=== PATIENT | female | born 1990 | race Caucasian/White ===

== ENCOUNTER 2020-12-30 04:42 | Inpatient (IN) ==
[2020-12-30] MEDS ORDERED: OXYTOCIN 30 UNITS/500 ML BAG IV PRN ×2 (05:42→08:44)
[2020-12-30] MEDS: LACTATED RINGER'S 1,000 ML IV PRN ×3 (06:00→16:31)
[2020-12-30 06:21] LABS: Hematocrit (blood only) 36.9 % (37-47); Hemoglobin 12.6 g/dL (12.0-16.0); Mean Corpuscular Hemoglobin 31.7 pg (25-34); Mean Corpuscular Hgb Conc 34.1 g/dL (32-36); Mean Corpuscular Volume 92.7 fL (80-100); Mean Platelet Volume 11.8 fL (7.4-10.4); Platelet Count 121 K/uL (130-400); RDW Coefficient of Variation 12.7 % (11.5-14.5); RDW Standard Deviation 42.8 fL (36.4-46.3); Red Blood Count 3.98 M/uL (4.2-5.4); White Blood Count 9.58 K/uL (4.8-10.8)
--- NOTE | 2020-12-30 06:31 | History & Physical Report ---
Date of Service December 30, 2020 Assessment & Plan (1) premature rupture of membranes: Plan: 30 y/o G1 at 36 3/7 presenting w/ PPROM VSS Fetus cat 1 Labor - will recheck in a few hours and see if progression. At GA will proceed with induction if not laboring GBS neg Epidural PRN COVID pending History of Present Illness Chief Complaint: LOF Primary Care Provider: CHRISTA Franco 30 y/o G1 at 36 3/7 wga presents after LOF began around 3AM this morning. +FM, occ ctx, denies VB PNI: None Past [employer] Hx: G1 Menarche 13, cycles q28-30d Denies hx STIs Denies hx abnl pap Allergies Allergy/AdvReac Type Severity Reaction Status Date / Time No Known Drug Allergies Allergy Verified 12/27/20 10:31 Home Medications Medication Instructions Recorded Confirmed Type prenat.vits,gavin,sbd-upnk-oooow 1 tab PO DAILY 06/08/20 12/30/20 History Patient History Medical History Dermoid cyst of right ovary Varicella vaccination Surgical History H/O ovarian cystectomy Laparoscopic Right-02/05/2018, dermoid Hx of wisdom tooth extraction Family History Mother High cholesterol Father High cholesterol Denies family history of Ovarian cancer Breast cancer Colorectal cancer Social History Smoking Status: Never smoker Hx Alcohol Use: Yes Alcohol type: beer Hx Substance Use: No Preferred Language: Turkmen Communication Ability: Effective Visual Impairment: No Limitations 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: No Beliefs That Will Affect Care: None marital status: marital status details: Matthew Granado (30) [phone] Current Living Situation: Spouse Current Living Situation Comment: lives with spouse, no pets current occupational status: employed current occupation: [id number] Other Information That Helps Us Care for You: No Feels Safe at Home: Yes Safety Concerns: Feels Safe At This Time Assistive Devices: None Physical Exam Constitutional: WD/WN, vitals as above Respiratory: normal respiratory effort; no respiratory distress and no labored breathing Genitourinary: OB Exam Abdomen: + vertex and + estimated weight (6) Manual OB Exam: + cervical dilation 1 cm, + cervical effacement 50%, + station - 2 and + amniotic fluid (grossly ruptured) clear OB Exam Monitor Tracing: + external FHT monitor used, + external uterine monitor used (q9) and + category I (135/mod/+accel/decel during vagal episode after starting IV) SVE performed by nursing Results & Data ([facility]) Vital Signs (Past 12 Hours) Vital Signs Temp Pulse Resp BP 12/30/20 06:02 84 122/69 12/30/20 05:59 59 L 100/55 L 12/30/20 05:58 44 L 62/32 L 12/30/20 05:10 98.4 F 78 16 114/71 12/30/20 05:07 78 114/71 Laboratory Results OB Labs: Blood Type O Positive 02/05/18 Antibody Screen NEGATIVE 02/05/18 Hemoglobin 12.1 g/dL (11.7-15.5) 10/31/20 Hematocrit 36.0 % (35.0-45.0) 10/31/20 Mean Corpuscular Volume 90.3 fL (80-100) 01/19/18 Platelet Count 220 K/uL (130.0-400.0) 06/13/20 Glucose 1 Hour 50 gm Load 99 mg/dL (<135) 10/31/20 OB Optional Labs: Chlamydia trachomatis RNA NOT DETECTED (NOT DETECTED) 06/13/20 Neisseria gonorrhoeae RNA NOT DETECTED (NOT DETECTED) 06/13/20 Labs Reviewed: declines cfDNA declines cf/sma Initial OB Labs 06/13/2020 Blood Type & RH O+ Antibody Screen No antibodies HCT/HGB 41.4/14.2 Platelets 220 Pap Test Chlamydia NEG Gonorrhea NEG Rubella IMMUNE RPR NON reactive Urine Culture/Screen NEG HBsAg Non Reactive HIV Non Reactive MCV 90.8 Ultrasound declines cf/sma/genetics [facility] Diagnostic Findings Anterior plac Coding Level of Care Code None Diagnoses premature rupture of membranes O42.919
--- NOTE | 2020-12-30 06:53 | Anesthesiology Consultation ---
Date of Service December 30, 2020 Assessment & Plan Chart Review Chart Review: Patient NOT seen in Pre Admission Testing and Acceptable Risk for Labor Epidural Consults Requested none ASA ASA2 Proposed Anesthesia Anesthesia Type: Labor Epidural and CSE History Height/Weight Height: 5 ft 4 in Weight: 69.946 kg Allergies Allergy/AdvReac Type Severity Reaction Status Date / Time No Known Drug Allergies Allergy Verified 12/27/20 10:31 Medications Home Medications Medication Instructions Recorded Confirmed Last Taken prenat.vits,gavin,iqv-boss-kkmjz 1 tab PO DAILY 06/08/20 12/30/20 12/29/20 Active Medications Generic Name Dose Route Start Last Admin Trade Name Freq PRN Reason Stop Dose Admin Lactated Ringer's 1,000 mls @ 125 mls/hr 12/30/20 05:42 12/30/20 06:15 Lr IV 01/01/21 05:41 0 mls/hr .Q8H PRN Infusion L&D Protocol Protocol Past Medical History Medical History Dermoid cyst of right ovary Varicella vaccination Exercise / Class Metabolic Activity II 4-5 Yardwork/Stairs/Walk up hill Past Family History Family History Mother High cholesterol Father High cholesterol Denies family history of Ovarian cancer Breast cancer Colorectal cancer Past Surgical History Surgical History H/O ovarian cystectomy Laparoscopic Right-02/05/2018, dermoid Hx of wisdom tooth extraction Past Anesthesia History No Hx of Anesthesia Complications and No Family Hx of Anesthesia Complications History of PONV No Hx of PONV and No Hx of Motion Sickness Social History Smoking Status: Never smoker Hx Alcohol Use: Yes Alcohol type: beer alcohol intake frequency: other Hx Substance Use: No substance use type: does not use Physical Exam Vital Signs Last Vital Signs Temp 36.9 C 12/30/20 05:10 Pulse 84 12/30/20 06:02 Resp 16 12/30/20 05:10 BP 122/69 12/30/20 06:02 Testing Laboratory Results 12/30/20 06:08
--- NOTE | 2020-12-30 08:49 | Labor Progress Brief Note ---
Date of Service December 30, 2020 Subjective Notes occasional cramping Assessment & Plan (1) premature rupture of membranes: Plan: 30 y/o G1 at 36 3/7 presenting w/ PPROM VSS Fetus cat 1 Labor - SVE unchanged, will start pitocin. Do not necessarily anticipate delivery at >24 hours so will defer betamethasone course per acog GBS neg Epidural PRN Admission and Anticipated Discharge Date Admission Date: December 30, 2020 Physical Exam Genitourinary: Manual OB Exam: + cervical dilation 1 cm, + cervical effacement 70%, + station -2 and + amniotic fluid (grossly ruptured, +nitrazine, pooling, ferning) clear OB Exam Monitor Tracing: + external FHT monitor used, + external uterine monitor used (q9) and + category I (135/mod/+accel/-decel) Results & Data ([facility]) Vital Signs (Past 12 Hours) Vital Signs Temp Pulse Resp BP 12/30/20 08:30 20 12/30/20 07:15 98.1 F 20 12/30/20 07:02 77 112/67 12/30/20 06:02 84 122/69 12/30/20 05:59 59 L 100/55 L 12/30/20 05:58 44 L 62/32 L 12/30/20 05:10 98.4 F 78 16 114/71 12/30/20 05:07 78 114/71 Coding Level of Care Code None Diagnoses premature rupture of membranes O42.919
--- NOTE | 2020-12-30 12:15 | Labor Progress Brief Note ---
Date of Service December 30, 2020 Subjective Feeling more ctx Assessment & Plan (1) premature rupture of membranes: Plan: 30 y/o G1 at 36 3/7 admitted w/ PPROM VSS Fetus cat 1 Labor - continue pitocin, peds ok with deferring betamethasone GBS neg Epidural PRN Admission and Anticipated Discharge Date Admission Date: December 30, 2020 Physical Exam Genitourinary: Manual OB Exam: + cervical dilation (1.5), + cervical effacement 70% and + station -2 OB Exam Monitor Tracing: + external FHT monitor used, + external uterine monitor used (q3-7) and + category I (135/mod/+accel/-decel) Results & Data ([facility]) Vital Signs (Past 12 Hours) Vital Signs Temp Pulse Resp BP 12/30/20 11:30 20 12/30/20 11:10 78 123/70 12/30/20 11:00 98.8 F 18 12/30/20 10:30 18 12/30/20 10:00 20 12/30/20 09:46 82 118/75 12/30/20 09:30 12/30/20 09:08 88 127/80 12/30/20 09:00 98.1 F 20 12/30/20 08:30 20 12/30/20 07:15 98.1 F 12/30/20 07:02 77 112/67 12/30/20 06:02 84 122/69 12/30/20 05:59 59 L 100/55 L 12/30/20 05:58 44 L 62/32 L 12/30/20 05:10 98.4 F 78 16 114/71 12/30/20 05:07 78 114/71 Coding Level of Care Code None Diagnoses premature rupture of membranes O42.919
--- NOTE | 2020-12-30 14:35 | Labor Progress Brief Note ---
Date of Service December 30, 2020 Subjective Getting much more uncomfortable Assessment & Plan (1) premature rupture of membranes: Plan: 30 y/o G1 at 36 3/7 admitted w/ PPROM VSS Fetus cat 1 Labor - continue pitocin, peds ok with deferring betamethasone GBS neg Epidural PRN. Discussed options for pain management other than epidural, she will consider Admission and Anticipated Discharge Date Admission Date: December 30, 2020 Physical Exam Genitourinary: Manual OB Exam: + cervical dilation 2 cm, + cervical effacement 70% and + station -2 OB Exam Monitor Tracing: + external FHT monitor used, + external uterine monitor used (q3-4) and + category I (135/mod/+accel/-decel) Results & Data ([facility]) Vital Signs (Past 12 Hours) Vital Signs Temp Pulse Resp BP 12/30/20 14:12 75 130/81 12/30/20 13:30 18 12/30/20 13:16 69 125/83 12/30/20 13:15 85 138/92 12/30/20 13:00 98.6 F 18 12/30/20 12:30 12/30/20 11:30 12/30/20 11:10 78 123/70 12/30/20 11:00 98.8 F 12/30/20 10:30 12/30/20 10:00 12/30/20 09:46 82 118/75 12/30/20 09:30 12/30/20 09:08 88 127/80 12/30/20 09:00 98.1 F 12/30/20 08:30 12/30/20 07:15 98.1 F 12/30/20 07:02 77 112/67 12/30/20 06:02 84 122/69 12/30/20 05:59 59 L 100/55 L 12/30/20 05:58 44 L 62/32 L 12/30/20 05:10 98.4 F 78 16 114/71 12/30/20 05:07 78 114/71 Coding Level of Care Code None Diagnoses premature rupture of membranes O42.919
[2020-12-30] MEDS ORDERED: ePHEDrine sulfate 50 MG/ML AMP ONE (15:03)
[2020-12-30] MEDS ORDERED: BUPIVACAINE 0.25% 30 ML VIAL ONE (15:03)
[2020-12-30] MEDS ORDERED: fentaNYL citrate 100 MCG/2 ML VIAL ONE (15:03)
[2020-12-30] MEDS ORDERED: SODIUM CHLORIDE 0.9% INJ 10 ML VIAL ONE (15:03)
[2020-12-30] MEDS ORDERED: fentaNYL 2MCG/ML ROPIVACAINE 1.25MG/ML 100 ML BAG EPI ONE (15:04)
[2020-12-30] MEDS ORDERED: ONDANSETRON INJ 2 MG/ML 2 ML VIAL IV PRN (15:44)
[2020-12-30] MEDS ORDERED: NALBUPHINE HCL INJ 10 MG/ML AMP IV PRN (15:44)
[2020-12-30] MEDS ORDERED: PROMETHAZINE HCL 25 MG in SODIUM CHLORIDE 0.9% 50 ML IV PRN (15:44)
[2020-12-30] MEDS ORDERED: fentaNYL 2MCG/ML ROPIVACAINE 1.25MG/ML 100 ML BAG EPI PRN (15:44)
[2020-12-30] MEDS ORDERED: NALOXONE HCL 1 MG in SODIUM CHLORIDE 0.9% 1000ML 1,000 ML IV PRN (15:44)
[2020-12-30] MEDS ORDERED: NALOXONE HCL 0.4 MG/1 ML VIAL/CARP IV PRN (15:44)
[2020-12-30] MEDS ORDERED: ePHEDrine sulfate 50 MG/ML AMP IV PRN (15:44)
[2020-12-30] MEDS ORDERED: diphenhydrAMINE 50 MG/ML VIAL IV PRN (15:44)
--- NOTE | 2020-12-30 17:34 | Labor Progress Brief Note ---
Date of Service December 30, 2020 Subjective Got comfortable w/ epidural for a while however got uncomfortable again recently Assessment & Plan (1) premature rupture of membranes: Plan: 30 y/o G1 at 36 3/7 admitted w/ PPROM VSS Fetus cat 1 Labor - progressed very well after epidural, anterior lip noted. Will reposition, plan to recheck in an hour or so GBS neg Epidural in place Admission and Anticipated Discharge Date Admission Date: December 30, 2020 Physical Exam Genitourinary: Manual OB Exam: + cervical dilation 9 cm, + cervical effacement 90% and + station + 2 OB Exam Monitor Tracing: + external FHT monitor used, + external uterine monitor used (q3) and + category I (135/mod/+accel/-decel) Results & Data ([facility]) Vital Signs (Past 12 Hours) Vital Signs Temp Pulse Resp BP Pulse Ox 12/30/20 17:30 117/87 12/30/20 17:27 86 98 12/30/20 17:22 74 97 12/30/20 17:17 73 96 12/30/20 17:14 80 115/55 L 12/30/20 17:12 83 96 12/30/20 17:07 86 97 12/30/20 17:02 88 96 12/30/20 17:00 88 139/73 12/30/20 16:57 90 97 12/30/20 16:54 85 93 12/30/20 16:52 96 H 97 12/30/20 16:48 87 94 12/30/20 16:47 76 96 12/30/20 16:46 76 116/73 12/30/20 16:42 79 96 12/30/20 16:37 73 96 12/30/20 16:36 79 93 12/30/20 16:32 76 97 12/30/20 16:29 67 16 101/64 12/30/20 16:27 76 97 12/30/20 16:22 73 96 12/30/20 16:17 73 96 12/30/20 16:14 75 116/73 12/30/20 16:12 80 114/71 97 12/30/20 16:10 70 93/54 L 12/30/20 16:08 76 100/58 L 12/30/20 16:07 76 96 12/30/20 16:06 72 95/54 L 12/30/20 16:04 73 100/56 L 12/30/20 16:02 75 98/55 L 96 12/30/20 16:00 82 18 92/54 L 12/30/20 15:58 72 98/54 L 12/30/20 15:57 72 97 12/30/20 15:56 81 103/58 L 12/30/20 15:54 80 104/55 L 12/30/20 15:52 82 110/55 L 97 12/30/20 15:50 96 H 102/58 L 12/30/20 15:48 84 101/53 L 12/30/20 15:47 84 97 12/30/20 15:46 90 103/55 L 12/30/20 15:44 79 115/55 L 12/30/20 15:42 82 113/55 L 97 12/30/20 15:39 18 12/30/20 15:37 103 H 96 12/30/20 15:32 111 H 96 12/30/20 15:27 116 H 95 12/30/20 15:24 99 H 92 12/30/20 15:23 102 H 138/67 12/30/20 15:22 98 H 96 12/30/20 15:17 102 H 97 12/30/20 15:00 98.2 F 12/30/20 14:30 22 12/30/20 14:12 75 130/81 12/30/20 13:30 18 12/30/20 13:16 69 125/83 12/30/20 13:15 85 138/92 12/30/20 13:00 98.6 F 12/30/20 12:30 20 12/30/20 11:30 20 12/30/20 11:10 78 123/70 12/30/20 11:00 98.8 F 18 12/30/20 10:30 18 12/30/20 10:00 20 12/30/20 09:46 82 118/75 12/30/20 09:30 20 12/30/20 09:08 88 127/80 12/30/20 09:00 98.1 F 12/30/20 08:30 20 12/30/20 07:15 98.1 F 12/30/20 07:02 77 112/67 12/30/20 06:02 84 122/69 12/30/20 05:59 59 L 100/55 L 12/30/20 05:58 44 L 62/32 L Coding Level of Care Code None Diagnoses premature rupture of membranes O42.919
--- NOTE | 2020-12-30 22:35 | Delivery Summary ---
Vaginal Delivery Summary Date of Service December 30, 2020 Vaginal Delivery Summary and 1st Degree LAC PREOPERATIVE DIAGNOSIS: 1. Single intrauterine at 36 3/7 wga 2. premature rupture of membranes POSTOPERATIVE DIAGNOSIS: 1. Single intrauterine at 36 3/7 wga 2. premature rupture of membranes 3. Delivered PROCEDURE: 1. Normal spontaneous vaginal delivery. SURGEON: Argelia Kendall MD ANESTHESIA: Epidural. ESTIMATED BLOOD LOSS: 300 mL FLUIDS: Continuous LR. URINE OUTPUT: None. COMPLICATIONS: None. CONDITION: Stable. INDICATIONS: 30 y/o G1 at 36 3/7 wga presented early this morning with complaints of leaking of fluid. She was found to have spontaneous rupture of membranes and was admitted. GBS was known neg. She was expectantly managed however did not progress and so was started on pitocin. She received an epidural for pain control and was then found to be complete approximately 3 hours later. FINDINGS: A viable female , weight pending with Apgars of 9 and 9 at 1 and 5 minutes respectively. SPECIMEN: Cord blood OPERATIVE REPORT: The patient progressed to 10 cm, 100% effaced and +2 station, pushed over intact perineum with anesthesia to deliver a viable female infant, weight and Apgars as above. Head of delivered in AGNIESZKA position. No nuchal cord was present. Body and shoulders were delivered without difficulty. was delivered to maternal abdomen and nursing staff. Delayed cord clamping was performed for 60 seconds. Cord was clamped and cut. Cord blood was obtained. Placenta delivered spontaneously intact with 3-vessel cord. IV oxytocin and fundal massage were given for excellent hemostasis. Vagina, cervix, perineum, and placenta were inspected. 1st degree laceration was noted and repaired in the usual fashion using 3-0 Vicryl. Sponge and needle counts correct x2. No sponges were left behind. Mother and stable in immediate period. [facility] Vaginal Delivery Charge Vaginal Delivery Codes: 12423 global code for the antepartum, delivery, and post- Delivery Type Details: and 1st Degree LAC
[2020-12-31] MEDS ORDERED: HYDROCORTISONE ACETATE 25 MG SUPP PR PRN (01:06)
[2020-12-31] MEDS ORDERED: ACETAMINOPHEN 325 MG TAB PO PRN (01:06)
[2020-12-31] MEDS ORDERED: DIPHTHERIA/TETANUS/PERTUSSIS 0.5 ML SYR/VIAL IM ONE (01:06)
[2020-12-31] MEDS ORDERED: bisacodyL 10 MG SUPP PR PRN (01:06)
[2020-12-31] MEDS ORDERED: BENZOCAINE 20% AER SPR 82.5 GM CAN EXT PRN (01:06)
[2020-12-31] MEDS ORDERED: OXYTOCIN 30 UNITS/500 ML BAG IV PRN (01:06)
[2020-12-31] MEDS ORDERED: SUPERCREAM 0.870% 15 GM JAR EXT PRN (01:06)
[2020-12-31] MEDS ORDERED: BENZOCAINE 20% AER SPR 82.5 GM CAN EXT ONE (01:10)
[2020-12-31] MEDS: IBUPROFEN 600 MG TAB PO PRN ×4 (04:53→19:21)
--- NOTE | 2020-12-31 07:26 | Obstetrical Progress Note ---
Date of Service December 31, 2020 Assessment & Plan (1) state: 30 yo PP1 from , doing well -Meeting all pp milestones -o+/rubella immune/ -f/u 6 weeks for appt, continue routine pp care Subjective Ambulation: ambulating normally Voiding: no voiding problems Passing Gas:: Yes Diet Tolerance:: regular diet Lochia:: Moderate Feeding Type:: breast feeding Pain well managed with medication Review of Systems Denies fevers, chills, n/v, ENGEL, CP, SOB Physical Exam Constitutional WD/WN, vitals as above no acute distress Respiratory normal respiratory effort, lungs clear to auscultation Cardiovascular RRR, no murmur, no edema Gastrointestinal (Abdomen) Percussion/Palpation: abdomen soft; abdomen nontender fundus firm at umbilicus and NT Musculoskeletal BLE symmetric, nonerythematous, nontender Results & Data ([facility]) Vital Signs (Past 12 Hours) Vital Signs Temp Pulse Pulse Resp BP BP Pulse Ox 12/31/20 04:48 98.6 F 82 18 112/76 12/31/20 00:20 99.0 F 79 18 115/71 12/31/20 00:11 87 107/63 12/30/20 23:57 78 109/59 L 12/30/20 23:42 85 106/61 12/30/20 23:27 86 106/56 L 12/30/20 22:57 80 115/65 12/30/20 22:42 80 109/63 12/30/20 22:12 88 16 123/58 L 12/30/20 22:07 91 H 96 12/30/20 22:02 100 H 95 12/30/20 21:59 104 H 128/57 L 94 12/30/20 21:57 103 H 95 12/30/20 21:54 123 H 94 12/30/20 21:52 129 H 96 12/30/20 21:47 103 H 96 12/30/20 21:44 122 H 162/67 H 12/30/20 21:42 105 H 96 12/30/20 21:37 94 H 96 12/30/20 21:32 105 H 96 12/30/20 21:30 95 H 141/63 H 93 12/30/20 21:27 105 H 97 09/05/21 21:22 88 96 12/30/20 21:21 90 94 12/30/20 21:17 100 H 96 12/30/20 21:14 92 H 109/67 12/30/20 21:12 90 97 12/30/20 21:07 104 H 92 12/30/20 21:05 98.4 F 16 12/30/20 21:02 90 97 12/30/20 20:57 110 H 96 12/30/20 20:53 127 H 93 12/30/20 20:52 119 H 97 12/30/20 20:47 106 H 96 12/30/20 20:45 104 H 119/67 12/30/20 20:42 103 H 96 12/30/20 20:38 119 H 93 12/30/20 20:37 89 96 12/30/20 20:32 126 H 95 12/30/20 20:29 96 H 110/61 12/30/20 20:27 94 H 96 12/30/20 20:22 91 H 96 12/30/20 20:20 116 H 93 12/30/20 20:17 144 H 98 12/30/20 20:15 116 H 119/68 12/30/20 20:12 112 H 98 12/30/20 20:09 87 93 12/30/20 20:07 97 H 97 12/30/20 20:02 82 97 12/30/20 19:59 75 110/64 12/30/20 19:57 70 96 12/30/20 19:52 72 96 12/30/20 19:47 74 97 12/30/20 19:45 75 111/67 12/30/20 19:42 83 99 12/30/20 19:37 76 99 12/30/20 19:32 81 98 12/30/20 19:29 75 109/66 12/30/20 19:27 76 97
--- NOTE | 2020-12-31 08:07 | Anesthesia Procedure Note ---
Date of Service December 31, 2020 Anesthesia Post Epidural Note Vital Signs Vital Signs: Temp Pulse Resp BP Pulse Ox 37.0 C 82 18 112/76 96 12/31/20 04:48 12/31/20 04:48 12/31/20 04:48 12/31/20 04:48 12/30/20 22:07 Notes Mental Status: alert / awake / arousable Nausea / Vomiting: adequately controlled Pain: adequately controlled Airway Patency, RR, SpO2: stable & adequate BP & HR: stable & adequate Hydration State: stable & adequate Neuraxial Anesthesia: was administered and sensory block is resolving Anesthetic Complications: no major complications apparent Epidural: Removed without complications and With tip intact
[2020-12-31] MEDS: DOCUSATE SODIUM 100 MG CAP PO SCH ×2 (08:22→19:20)
[2020-12-31] MEDS: PRENATAL VITAMIN 1 TAB PO SCH (08:22)
[2020-12-31] MEDS ORDERED: bisacodyL 5 MG TABEC PO SCH (20:00)
--- NOTE | 2021-01-01 06:12 | Obstetrical Progress Note ---
Date of Service <Misael Fernandes MD - Last Filed: 01/01/21 07:13> January 01, 2021 Assessment & Plan <Misael Fernandes MD - Last Filed: 01/01/21 07:13> (1) Vaginal delivery: 30 yo now PPD2 from at 36wk4d -Continue routine care, anticipated d/c today, discussed d/c with patient -Vitals reviewed- HDS, afebrile -Blood type O+, GBS-, Rubella immune -Encourage ambulation, regular diet -Pain control with Motrin, Tylenol PRN -Encourage -Hgb 12.6 on admission, asymptomatic -F/u in 6 weeks with OB <Sandrine Lynn MD, FACOG - Last Filed: 01/01/21 08:04> (1) Vaginal delivery: Subjective <Misael Fernandes MD - Last Filed: 01/01/21 07:13> Ambulation: ambulating normally Voiding: no voiding problems Passing Gas:: Yes Diet Tolerance:: regular diet Lochia:: Moderate Feeding Type:: breast feeding Current Pain Level(1-10): 3 Pt and baby doing well, no acute events or complaints. Has had a BM. Soreness well controlled with medication. Review of Systems Denies fevers/chills. Denies dyspnea, cough. Denies chest pain. Denies breast pain or discharge. Denies dysuria. Denies headache. Physical Exam <Misael Fernandes MD - Last Filed: 01/01/21 07:13> General: Alert, oriented, no acute distress Cardiac: Regular rate and rhythm, normal S1, S2. No murmurs appreciated. Respiratory: Clear to auscultation b/l with good air flow entry, symmetric chest rise and fall. No wheezes or crackles. No increased work of breathing or accessory muscle use Abdomen: Soft, nontender, nondistended. Fundus firm and palpable at 2 cm below umbilicus. No guarding or rebound. Skin: No rashes or lesions Extremities: Warm, dry, well-perfused with capillary refill <2s b/l. No lower extremity edema, erythema or swelling. Negative Ashly's sign b/l. Results & Data ([facility]) <Misael Fernandes MD - Last Filed: 01/01/21 07:13> Vital Signs (Past 12 Hours) Vital Signs Temp Pulse Resp BP BP 01/01/21 00:00 36.8 C 84 16 120/81 12/31/20 19:15 36.6 C 92 H 18 120/77 <Sandrine Lynn MD, FACOG - Last Filed: 01/01/21 08:04> Co-Signing Physician Notes Resident Physician Supervision Note: I interviewed and examined the patient. Discussed with Dr. Fernandes and agree with findings and plan as documented in the note. Any exceptions or clarifications are listed here: [None] Documented By: Sandrine Lynn MD, FACOG Resident Activity Tracking <Misael Fernandes MD - Last Filed: 01/01/21 07:13> Resident Involvement: Resident Care Provided Care Provided: OB Delivery
[2021-01-01] MEDS: DOCUSATE SODIUM 100 MG CAP PO SCH (08:22)
[2021-01-01] MEDS: IBUPROFEN 600 MG TAB PO PRN (08:22)
[2021-01-01] MEDS: PRENATAL VITAMIN 1 TAB PO SCH (08:22)
== END 2021-01-01 14:45 | disposition home or self-care (01) | DRG 807 ==
LOC: OPB 04:42 → 4S1 04:49 → 4S2 12-31 00:44

== ENCOUNTER 2024-06-03 08:02 | Inpatient (IN) ==
[2024-06-03] MEDS ORDERED: OXYTOCIN 30 UNITS/NSS 30 UNITS/500 ML BAG IV PRN (09:19)
[2024-06-03] MEDS ORDERED: LIDOCAINE 1% LOCAL 20 ML VIAL INFIL PRN (09:19)
--- NOTE | 2024-06-03 09:24 | History & Physical Report ---
Date of Service June 03, 2024 Assessment & Plan (1) Encounter for induction of labor: Plan: Patient is a 34 yo female currently at 39 WGA here for IOL. Cervix favorable for IOL. Plan: Pitocin as per protocol. (2) Short interval between pregnancies affecting , antepartum: Admission and Anticipated Discharge Date Admission Date: June 03, 2024 History of Present Illness Chief Complaint: Here for IOL Primary Care Provider: Debbie Harp Patient is a 34 yo female currently at 39 WGA who is here for induction. IOL decided earlier than initial date d/t patient getting uncomfortable and getting frequent back pains. Risk factors *G1 PPROM with 36wk delivery *GBS done at 35 6/7 due to hx of PPROM: Negative *Short Interval No contractions; movement present; No fluid loss; No bloody show External FHT and external uterine monitors used;tracing category 1 so far ; normal FHT variability Had regular appointments with OB. Labs: Blood type: O Pos Antibody screen: Neg Hgb: 12.9 (03/20) Plt: awaiting (today) Rubella:Immune VDRL/RPR: NR Gonorrhea: NR Chlamydia: NR HIV: NR HbSAg: NR GBS: NR Allergies Allergy/AdvReac Type Severity Reaction Status Date / Time No Known Drug Allergies Allergy Verified 06/02/24 14:07 Home Medications Medication Instructions Recorded Confirmed Type prenat.vits,gavin,gnu-rndv-twcni 1 tab PO DAILY 06/08/20 06/03/24 History Patient History Medical History (Updated 06/03/24 @ 09:41 by Destiny Castillo MD) History of premature rupture of membranes (PPROM) Menorrhagia Varicella vaccination Dermoid cyst of right ovary Surgical History H/O ovarian cystectomy Hx of wisdom tooth extraction Family History Mother High cholesterol Father High cholesterol Denies family history of Ovarian cancer Breast cancer Colorectal cancer Uterine cancer Social History (Updated 06/03/24 @ 08:14 by Lorri Deras RN) Smoking Status: Never smoker Second Hand Exposure: No; Do You Dip or Chew Tobacco: No; Hx Alcohol Use: No Hx Substance Use: No Preferred Language: Beninese Communication Ability: Effective Visual Impairment: No Limitations Senior Director Of Strategy Required: No Beliefs That Will Affect Care: None marital status: marital status details: Matthew Granado (33) [phone] Current Living Situation: Spouse and Family Current Living Situation Comment: lives with spouse, 2 child, no pets current occupational status: employed current occupation: [employer] How many Children do You have: 2 Other Information That Helps Us Care for You: No Feels Safe at Home: Yes Safety Concerns: Feels Safe At This Time Assistive Devices: None Review of Systems Denies fever, chills, sweats. Denies SOB, difficulty breathing, chest pain, palpitations, and chest pressure. Denies breast pain. Denies dysuria. Denies headache or changes in vision. Physical Exam Physical Exam: General: Alert and oriented. No acute distress CV: Regular rate and rhythm. No murmurs. Respiratory: CTA bilaterally. No rhonchi, wheezes, or crackles. No increased work of breathing. Abdomen: Gravid; Soft, nontender upon palpation Pelvic: Cx: Mid consistency, Dilated 3 cm; Effacement 50; Station -[address] Ballesetros Lower extremities: No LE edema. No deep calf pain. Ashly's negative bilaterally. Results & Data Vital Signs (Past 12 Hours) Vital Signs Temp Pulse Resp BP 06/03/24 08:14 36.8 C 18 06/03/24 08:12 18 06/03/24 08:12 36.8 C 18 06/03/24 08:11 78 130/79 Supervising Physician Co-Signing Physician Notes Resident Physician Supervision Note: I interviewed and examined the patient. Discussed with Dr. Castillo and agree with findings and plan as documented in the note. Any exceptions or clarifications are listed here: [None] Documented By: Argelia Kendall MD Resident Activity Tracking Resident Involvement: Resident Care Provided Care Provided: OB Delivery
[2024-06-03 10:03] LABS: Hematocrit (blood only) 36.6 % (37.0-47.0); Hemoglobin 12.6 g/dl (12.0-16.0); Mean Corpuscular Hemoglobin 31.3 pg (25.0-34.0); Mean Corpuscular Hgb Conc 34.4 g/dL (32.0-36.0); Mean Corpuscular Volume 90.8 fL (80.0-100.0); RDW Coefficient of Variation 12.2 % (11.5-14.5); RDW Standard Deviation 40.4 fL (36.4-46.3); Red Blood Count 4.03 M/uL (4.20-5.40); White Blood Count 7.56 K/ul (4.8-10.8)
[2024-06-03] MEDS: OXYTOCIN 30 UNITS/NSS 30 UNITS/500 ML BAG IV PRN ×2 (10:13→17:25)
[2024-06-03] MEDS: LACTATED RINGER'S 1,000 ML IV PRN (10:13)
[2024-06-03 10:21] LABS: Platelet Count 99 K/uL (130-400); Platelet Estimate Decreased (Normal)
[2024-06-03] MEDS: LIDOCAINE 2%/EPINEPHRINE 1:200,000 20 ML PF ONE (13:13)
[2024-06-03] MEDS: BUPIVACAINE 0.25% PF 30 ML VIAL ONE (13:13)
[2024-06-03] MEDS: fentANYL 2 MCG/ML BUPIVacaine 0.125%-NSS 100ML BAG ONE (13:13)
[2024-06-03] MEDS: SODIUM CHLORIDE 0.9% PF INJ 10 ML VIAL ONE (13:13)
[2024-06-03] MEDS ORDERED: NALOXONE HCL 0.08 MG in SYRINGE 1.8 ML IV PRN (13:18)
[2024-06-03] MEDS ORDERED: diphenhydrAMINE 50 MG/ML VIAL IV PRN ×2 (13:18→15:14)
[2024-06-03] MEDS ORDERED: ONDANSETRON INJ 2 MG/ML 2 ML VIAL IV PRN ×2 (13:18→15:14)
[2024-06-03] MEDS ORDERED: PROMETHAZINE 6.25 MG/50.25 ML BAG IV PRN ×2 (13:18→15:14)
[2024-06-03] MEDS ORDERED: NALBUPHINE HCL INJ 10 MG/ML AMP IV PRN ×2 (13:18→15:14)
[2024-06-03] MEDS ORDERED: ePHEDrine sulfate 50 MG/ML AMP IV PRN ×2 (13:18→15:14)
[2024-06-03] MEDS ORDERED: NALOXONE HCL 1 MG in SODIUM CHLORIDE 0.9% 1,000 ML IV PRN ×2 (13:18→15:14)
[2024-06-03] MEDS ORDERED: MoRPHine SULFATE PF 1 MG/ML 10 ML AMP/VIAL INT SPINAL ONE (13:18)
[2024-06-03] MEDS ORDERED: NALOXONE HCL 0.4 MG/1 ML VIAL/CARP IV PRN ×2 (13:18→15:14)
--- NOTE | 2024-06-03 13:18 | Anesthesiology Consultation ---
Date of Service June 03, 2024 Assessment & Plan Chart Review Chart Review: Patient NOT seen in Pre Admission Testing and Acceptable Risk for Labor Epidural Consults Requested none ASA ASA2 Proposed Anesthesia Anesthesia Type: Labor Epidural Risk / Benefits Reviewed With: PT / POA / Parent / Guardian, Accepts Plan and Informed Consent Obtained History Height/Weight Height: 5 ft 4 in Weight: 77.564 kg Allergies Allergy/AdvReac Type Severity Reaction Status Date / Time No Known Drug Allergies Allergy Verified 06/02/24 14:07 Medications Home Medications Medication Instructions Recorded Confirmed Last Taken prenat.vits,gavin,ran-hlel-lazsu 1 tab PO DAILY 06/08/20 06/03/24 06/02/24 Active Medications Generic Name Dose Route Start Last Admin Trade Name Freq PRN Reason Stop Dose Admin Lactated Ringer's 1,000 mls @ 125 mls/hr 06/03/24 09:19 06/03/24 13:10 Lr IV 06/04/24 09:18 125 mls/hr .Q8H PRN Administration L&D Protocol Protocol Oxytocin 30 units in 500 mls @ 9 mls/hr 06/03/24 09:19 06/03/24 12:25 Pitocin 30 Units/Nss IV 06/05/24 09:18 0.54 units/hr .Q24H PRN 9 mls/hr Labor Induction/Augmentation Titration Protocol 0.54 UNITS/HR Past Medical History Medical History (Updated 06/03/24 @ 09:41 by Destiny Castillo MD) History of premature rupture of membranes (PPROM) Menorrhagia Varicella vaccination Dermoid cyst of right ovary Exercise / Class Metabolic Activity II 4-5 Yardwork/Stairs/Walk up hill Past Family History Family History Mother High cholesterol Father High cholesterol Denies family history of Ovarian cancer Breast cancer Colorectal cancer Uterine cancer Past Surgical History Surgical History H/O ovarian cystectomy Hx of wisdom tooth extraction Past Anesthesia History No Hx of Anesthesia Complications and No Family Hx of Anesthesia Complications History of PONV No Hx of PONV and No Hx of Motion Sickness Social History Smoking Status: Never smoker Do You Dip or Chew Tobacco: No Hx Alcohol Use: No Alcohol type: beer alcohol intake frequency: other Hx Substance Use: No substance use type: does not use Physical Exam Vital Signs Last Vital Signs Temp 36.6 C 06/03/24 11:15 Pulse 82 06/03/24 13:16 Resp 18 06/03/24 12:30 BP 107/59 L 06/03/24 13:16 Pulse Ox 98 06/03/24 13:14 ENMT Mouth: no dentition abnormality Thyromental Distance: > or= 3.5 Finger Breadths Mallampati Class: II Neck normal visual inspection Respiratory normal respiratory effort Auscultation: lungs clear to auscultation bilaterally Cardiovascular Rate/Rhythm: regular rate and regular rhythm Psychiatric Orientation: alert Testing Laboratory Results 06/03/24 09:37
[2024-06-03] MEDS ORDERED: DC INTRASPINAL MORPHINE SCH (13:30)
[2024-06-03] MEDS ORDERED: NO NARCOTICS OR SEDATIVES SCH (13:30)
--- NOTE | 2024-06-03 14:10 | Labor Progress Brief Note ---
Date of Service June 03, 2024 Subjective comfortable w/ epidural Assessment & Plan (1) Encounter for induction of labor: Plan: 34 yo at 39 wga admitted for eiol VSS Fetus cat 1 Labor - pit at 9, now s/p arom GBS neg epidural in place Admission and Anticipated Discharge Date Admission Date: June 03, 2024 Physical Exam Genitourinary: Manual OB Exam: + cervical dilation 4 cm, + cervical effacement 50%, + station -2 and + amniotic fluid (arom clear) OB Exam Monitor Tracing: + external FHT monitor used, + external uterine monitor used (q3-4) and + category I (145/mod/+accel/-decel) Results & Data Vital Signs (Past 12 Hours) Vital Signs Temp Pulse Resp BP Pulse Ox 06/03/24 14:04 83 99 06/03/24 13:59 75 98 06/03/24 13:54 100 06/03/24 13:54 81 06/03/24 13:54 96 H 109/66 06/03/24 13:49 70 99 06/03/24 13:46 68 97/54 L 06/03/24 13:44 70 98 06/03/24 13:42 75 100/57 L 06/03/24 13:39 80 98 06/03/24 13:38 78 104/57 L 06/03/24 13:34 83 97 06/03/24 13:33 76 101/55 L 06/03/24 13:30 18 06/03/24 13:30 18 06/03/24 13:29 86 98 06/03/24 13:28 86 101/55 L 06/03/24 13:24 90 98 06/03/24 13:20 81 104/56 L 06/03/24 13:19 93 H 98 06/03/24 13:18 86 108/63 06/03/24 13:16 82 107/59 L 06/03/24 13:14 85 107/59 L 98 06/03/24 13:12 82 112/64 06/03/24 13:10 91 H 130/77 06/03/24 13:09 84 98 06/03/24 13:08 90 129/73 06/03/24 13:04 89 133/77 100 06/03/24 13:00 18 06/03/24 13:00 18 06/03/24 12:59 79 97 06/03/24 12:54 78 98 06/03/24 12:49 67 98 06/03/24 12:44 72 99 06/03/24 12:30 18 06/03/24 12:30 18 06/03/24 12:27 71 108/69 06/03/24 12:00 18 06/03/24 12:00 18 06/03/24 11:30 18 06/03/24 11:30 18 06/03/24 11:15 97.9 F 77 103/65 06/03/24 11:00 18 06/03/24 11:00 18 06/03/24 10:30 18 06/03/24 10:30 18 06/03/24 10:20 76 113/68 06/03/24 10:00 18 06/03/24 10:00 18 06/03/24 09:30 18 06/03/24 09:30 18 06/03/24 09:00 18 06/03/24 09:00 18 06/03/24 08:30 18 06/03/24 08:30 18 06/03/24 08:14 98.2 F 18 06/03/24 08:12 18 06/03/24 08:12 98.2 F 18 06/03/24 08:11 78 130/79 Coding Level of Care Code None Diagnoses Encounter for induction of labor Z34.90
[2024-06-03] MEDS ORDERED: ROPIVACAINE 0.5% PF 5 MG/ML 20 ML VIAL EPI PRN (15:14)
[2024-06-03] MEDS ORDERED: SODIUM CHLORIDE 0.9% PF INJ 10 ML VIAL EPI PRN (15:14)
[2024-06-03] MEDS ORDERED: LIDOCAINE 2% MPF LOCAL 5 ML VIAL EPI PRN (15:14)
[2024-06-03] MEDS ORDERED: fentaNYL citrate PF 100 MCG/2 ML VIAL EPI PRN (15:14)
[2024-06-03] MEDS ORDERED: fentANYL 2 MCG/ML BUPIVacaine 0.125%-NSS 100ML BAG EPI PRN (15:14)
[2024-06-03] MEDS ORDERED: BUPIVACAINE 0.25% PF 30 ML VIAL EPI PRN (15:14)
[2024-06-03] MEDS: ePHEDrine sulfate 50 MG/ML AMP ONE (15:38)
[2024-06-03] MEDS: fentaNYL citrate PF 100 MCG/2 ML VIAL ONE (15:38)
[2024-06-03] MEDS: SODIUM CHLORIDE 0.9% PF INJ 10 ML VIAL EPI STA (15:39)
[2024-06-03] MEDS: BUPIVACAINE 0.25% PF 30 ML VIAL EPI STA (15:39)
[2024-06-03] MEDS: fentaNYL citrate PF 100 MCG/2 ML VIAL EPI STA (15:39)
[2024-06-03] MEDS: LIDOCAINE 2%/EPINEPHRINE 1:200,000 20 ML PF EPI STA (15:39)
--- NOTE | 2024-06-03 17:03 | Delivery Summary ---
Vaginal Delivery Summary Date of Service June 03, 2024 Vaginal Delivery Summary and 1st Degree LAC PREOPERATIVE DIAGNOSIS: 1. Single intrauterine at 39 wga 2. Elective IOL POSTOPERATIVE DIAGNOSIS: 1. Single intrauterine at 39 wga 2. Elective IOL 3. Delivered PROCEDURE: 1. Normal spontaneous vaginal delivery. SURGEON: Argelia Kendall MD ANESTHESIA: Epidural. QUANTITATIVE BLOOD LOSS: 52 mL FLUIDS: Continuous LR. URINE OUTPUT: None. COMPLICATIONS: None. CONDITION: Stable. INDICATIONS: 34 yo at 39 wga presented for elective IOL. She was started on pitocin and received an epidural for pain control. She underwent arom and progressed to complete and desired to push. FINDINGS: A viable male , weight pending with Apgars of 8 and 9 at 1 and 5 minutes respectively. SPECIMEN: Cord blood OPERATIVE REPORT: The patient progressed to 10 cm, 100% effaced and +2 station, pushed over intact perineum with anesthesia to deliver a viable male , weight and Apgars as above. Head of delivered in AGNIESZKA position. No nuchal cord was present. Body and shoulders were delivered without difficulty. was delivered to maternal abdomen and nursing staff. Delayed cord clamping was performed for 60 seconds. Cord was clamped and cut. Cord blood was obtained. Placenta delivered spontaneously intact with 3-vessel cord. IV oxytocin and fundal massage were given for excellent hemostasis. Vagina, cervix, perineum, and placenta were inspected. A first degree laceration was repaired using 3-0 vicryl. There was excellent hemostasis. Sponge and needle counts correct x2. No sponges were left behind. Mother and stable in immediate period. [facility] Vaginal Delivery Charge Vaginal Delivery Codes: 34781 global code for the antepartum, delivery, and p ost- Delivery Type Details: and 1st Degree LAC
[2024-06-03] MEDS ORDERED: DIPHTHER/TETAN/PERTUS Vaccine (Tdap, Adol/Adult) 0.5mL IM ONE (17:15)
[2024-06-03] MEDS ORDERED: HYDROCORTISONE ACETATE 25 MG SUPP PR PRN (17:15)
[2024-06-03] MEDS ORDERED: bisacodyL 10 MG SUPP PR PRN (17:15)
[2024-06-03] MEDS: IBUPROFEN 600 MG TAB PO PRN (18:25)
[2024-06-03] MEDS: BENZOCAINE 20% SPRY 85 APPLN/85 GM CAN EXT PRN (18:25)
--- NOTE | 2024-06-03 18:30 | Anesthesia Procedure Note ---
Date of Service June 03, 2024 Anesthesia Post Epidural Note Vital Signs Vital Signs: Temp Pulse Resp BP Pulse Ox 36.6 C 86 18 117/62 97 06/03/24 16:06 06/03/24 18:25 06/03/24 16:55 06/03/24 18:25 06/03/24 17:59 Notes Mental Status: alert / awake / arousable Nausea / Vomiting: adequately controlled Pain: adequately controlled Airway Patency, RR, SpO2: stable & adequate BP & HR: stable & adequate Hydration State: stable & adequate Neuraxial Anesthesia: was administered and sensory block is resolving Anesthetic Complications: no major complications apparent and Pt Satisfied with anesthetic care Epidural: Removed without complications and With tip intact
[2024-06-03 20:09] VITALS: RESP 16
[2024-06-03] MEDS: DOCUSATE SODIUM 100 MG CAP PO SCH (21:37)
[2024-06-04 07:36] LABS: Hematocrit (blood only) 35.3 % (37.0-47.0); Mean Corpuscular Hemoglobin 30.8 pg (25.0-34.0); Mean Corpuscular Volume 90.7 fL (80.0-100.0); Mean Platelet Volume 12.1 fL (9.4-12.4); Platelet Count 85 K/uL (130-400); RDW Coefficient of Variation 12.6 % (11.5-14.5); RDW Standard Deviation 41.1 fL (36.4-46.3); Red Blood Count 3.89 M/uL (4.20-5.40); White Blood Count 9.45 K/ul (4.8-10.8)
--- NOTE | 2024-06-04 07:44 | Obstetrical Progress Note ---
Date of Service June 04, 2024 Assessment & Plan (1) Vaginal delivery: Plan: 1st PPD Day following with 34 years at term. Mom and baby well. Ready for DC today. Admission and Anticipated Discharge Date Admission Date: June 03, 2024 Supervising Physician Co-Signing Physician Notes Resident Physician Supervision Note: I interviewed and examined the patient. Discussed with Dr. Castillo and agree with findings and plan as documented in the note. Any exceptions or clarifications are listed here: PP1 s/p , doing well. Had some bilateral calf tightness when she first got up to walk but that has since resolved. Exam benign, calfs NT, nonerythematous, symmetric and not swollen so low vte suspicion. Desires dc, reviewed precautions Documented By: Argelia Kendall MD Subjective 1st Day following with 34 years at term No active complains Both mom and baby doing well. Pain: Mild, intermittent Lochia: Moderate Diet: Regular Ob diet Gas: Yes Peeing: Normal, no bladder distension Ambulation: Normally. Review of Systems Review of Systems: No SOB, chest pain, leg pain No dizziness, headache, palpitation No Blurring of vision , fever Physical Exam Physical Exam: General: Alert and oriented. No acute distress. CVS: S1 S2+ No murmurs, regular rhythm. Respiratory: CTA bilaterally. No rhonchi, wheezes, or crackles. No increased work of breathing. Abdomen: Bowel sound +. Soft, nontender Uterus: Fundus firm and palpable few cm below the umbilicus. Lower extremities: No LE edema. No deep calf pain. Results & Data Vital Signs (Past 12 Hours) Vital Signs Temp Pulse Resp BP Pulse Ox O2 Del Method 06/04/24 03:20 37.1 C 77 16 116/76 96 Room Air 06/03/24 23:06 37.2 C 78 16 109/70 97 Room Air 06/03/24 20:08 36.8 C 83 16 108/70 95 Room Air Resident Activity Tracking Resident Involvement: Resident Care Provided Care Provided: OB Delivery
[2024-06-04] MEDS: PRENATAL VITAMIN 1 TAB PO SCH (08:26)
[2024-06-04] MEDS ORDERED: NON-FORMULARY MEDICATION (Prenat.Vits,Cal,Min-Iron-Folic tablet) PO SCH (09:00)
[2024-06-04 09:03] VITALS: TEMP 98.1
[2024-06-04] MEDS: ACETAMINOPHEN 325 MG TAB PO PRN (12:34)
[2024-06-04 12:45] VITALS: BP 115/75; PULSE 83; O2SAT 97
[2024-06-04] MEDS ORDERED: bisacodyL 5 MG TABEC PO SCH (20:00)
== END 2024-06-04 17:00 | disposition home or self-care (01) | DRG 807 ==
LOC: 4S1 08:02 → 4E2 20:21